=== PATIENT | female | born 1980 | race Two or more races ===

== ENCOUNTER 2018-07-17 19:29 | Inpatient (IN) | payer BC ==
[~2018-07-17] VITALS: Ht 165.1 cm; Wt 53.1 kg
[2018-07-17 19:59] LABS: BASOPHILS % (AUTO) 0.5 % (0.0-2.0); EOSINOPHILS # (AUTO) 0.1 K/uL (0.0-0.7); EOSINOPHILS % (AUTO) 0.8 % (0.0-7.0); HEMATOCRIT 39.5 % (31.2-41.9); HEMOGLOBIN 13.2 g/dL (10.9-14.3); LYMPHOCYTES # (AUTO) 3.6 K/uL (20.0-40.0); LYMPHOCYTES % (AUTO) 44.9 % (20.5-51.5); MEAN CORPUSCULAR HEMOGLOBIN 28.1 uug (24.7-32.8); MEAN CORPUSCULAR HGB CONC 33 g/dL (32.3-35.6); MEAN CORPUSCULAR VOLUME 84.4 fL (75.5-95.3); MONOCYTES # (AUTO) 1.1 K/uL (2.0-10.0); MONOCYTES % (AUTO) 13.8 % (0.0-11.0); NEUTROPHILS # (AUTO) 3.2 K/uL (1.8-8.9); PLATELET COUNT (AUTO) 217 K/uL (179-408); RED BLOOD CELL COUNT(AUTO) 4.68 MIL/uL (3.63-4.92)
[2018-07-17] MEDS ORDERED: PROPRANOLOL HCL 1 MG/1 ML VIAL IVP ONE (20:00)
[2018-07-17] MEDS ORDERED: METOPROLOL TARTRATE 5 MG/5 ML VIAL IVP ONE ×2 (20:00→20:04)
[2018-07-17] MEDS ORDERED: IV NORMAL SALINE 1000 ML BAG IV ONE (20:00)
[2018-07-17 20:11] LABS: CARBON DIOXIDE 22 mmol/L (21-32); CHLORIDE 104 mmol/L (98-107); CREATININE 0.5 mg/dL (0.6-1.3); GLUCOSE 101 mg/dL (74-106); POTASSIUM 3.1 mmol/L (3.5-5.1); UREA NITROGEN, BLOOD 6 mg/dL (7-18)
[2018-07-17 20:26] LABS: ALANINE AMINOTRANSFERASE 16 U/L (14-59); ALKALINE PHOSPHATASE 100 U/L (50-136); ASPARTATE AMINOTRANSFERASE 15 U/L (15-37); BILIRUBIN,DIRECT 0.1 mg/dL (0.0-0.2); BILIRUBIN,TOTAL 0.3 mg/dL (0.2-1.0); TOTAL PROTEIN, SERUM 7.8 g/dL (6.4-8.2)
[2018-07-17] MEDS ORDERED: POTASSIUM BICARBONATE/CIT AC 25 MEQ TABLET.EFF PO ONE (20:45)
[2018-07-17] MEDS ORDERED: LORAZEPAM 2 MG/1 ML VIAL IV ONE (20:45)
[2018-07-17] MEDS ORDERED: LORAZEPAM 2 MG/1 ML VIAL ONE (20:48)
[2018-07-17] MEDS ORDERED: POTASSIUM BICARBONATE/CIT AC 25 MEQ TABLET.EFF ONE (20:48)
[2018-07-17] MEDS ORDERED: ALPRAZOLAM 0.25 MG TABLET PO PRN (21:45)
[2018-07-17] MEDS ORDERED: ACETAMINOPHEN 325 MG TABLET PO PRN (21:45)
[2018-07-17] MEDS ORDERED: TEMAZEPAM 15 MG CAPSULE PO PRN (21:45)
[2018-07-17] MEDS ORDERED: POTASSIUM CHLORIDE 20 MEQ in IV 1/2NS 1000 ML 1,000 ML IV SCH (21:45)
[2018-07-17] MEDS ORDERED: METOPROLOL TARTRATE 50 MG TABLET PO ONE (22:30)
[2018-07-17 23:15] VITALS: BP 118/74
[2018-07-18] VITALS: BP 114/74
[2018-07-18 04:00] VITALS: BP 102/66
[2018-07-18 06:42] LABS: BASOPHILS % (AUTO) 0.3 % (0.0-2.0); EOSINOPHILS # (AUTO) 0.1 K/uL (0.0-0.7); EOSINOPHILS % (AUTO) 1.3 % (0.0-7.0); HEMATOCRIT 35.2 % (31.2-41.9); HEMOGLOBIN 11.8 g/dL (10.9-14.3); LYMPHOCYTES # (AUTO) 2.3 K/uL (20.0-40.0); LYMPHOCYTES % (AUTO) 46.1 % (20.5-51.5); MEAN CORPUSCULAR HEMOGLOBIN 28.4 uug (24.7-32.8); MEAN CORPUSCULAR HGB CONC 33 g/dL (32.3-35.6); MEAN CORPUSCULAR VOLUME 85.1 fL (75.5-95.3); MONOCYTES # (AUTO) 0.8 K/uL (2.0-10.0); MONOCYTES % (AUTO) 16.1 % (0.0-11.0); NEUTROPHILS # (AUTO) 1.8 K/uL (1.8-8.9); NEUTROPHILS % (AUTO) 36.2 % (38.5-71.5); PLATELET COUNT (AUTO) 172 K/uL (179-408); RED BLOOD CELL COUNT(AUTO) 4.14 MIL/uL (3.63-4.92); WHITE BLOOD COUNT (AUTO) 4.9 K/uL (3.8-11.8)
[2018-07-18 06:57] LABS: ALANINE AMINOTRANSFERASE 34 U/L (14-59); ALKALINE PHOSPHATASE 83 U/L (50-136); ASPARTATE AMINOTRANSFERASE 28 U/L (15-37); BILIRUBIN,TOTAL 0.3 mg/dL (0.2-1.0); CARBON DIOXIDE 22 mmol/L (21-32); CHLORIDE 107 mmol/L (98-107); CREATININE 0.4 mg/dL (0.6-1.3); GLUCOSE 86 mg/dL (74-106); PHOSPHOROUS 4.3 mg/dL (2.5-4.9); POTASSIUM 3.6 mmol/L (3.5-5.1); TOTAL PROTEIN, SERUM 6.4 g/dL (6.4-8.2); UREA NITROGEN, BLOOD 6 mg/dL (7-18)
[2018-07-18 07:02] LABS: THYROID STIMULATING HORMONE < 0.007 mIU/mL (0.358-3.740)
[2018-07-18 07:03] LABS: IRON, SERUM 53 ug/dL (50-175)
[2018-07-18 07:12] LABS: EOSINOPHILS % (MANUAL) 1 % (0-8); LYMPHOCYTES % (MANUAL) 47 % (20-40); MONOCYTES % (MANUAL) 15 % (2-10); NEUTROPHILS % (MANUAL) 37 % (42-75)
[2018-07-18 08:29] VITALS: BP 100/70
[2018-07-18] MEDS ORDERED: METOPROLOL TARTRATE 25 MG TABLET PO SCH (09:00)
[2018-07-18] MEDS ORDERED: METOPROLOL TARTRATE 50 MG TABLET PO SCH (09:00)
[2018-07-18 11:28] VITALS: BP 110/65
[2018-07-18] MEDS ORDERED: TEMA15CA5 PO (12:30)
[2018-07-18] MEDS ORDERED: PROP10TA10 PO (12:30)
[2018-07-18] MEDS ORDERED: ALPR0.25 PO (12:30)
== END 2018-07-18 15:42 | disposition home or self-care (01) | DRG 645 ==
LOC: ER 19:29 → TELE3 21:46 → MEDSURG3 07-18 14:43
PROVIDERS: ADMIT Internal Medicine; ATTEND Internal Medicine
DX: E05.90 Thyrotoxicosis, unspecified without thyrotoxic crisis or storm (principal); F41.9 Anxiety disorder, unspecified; R00.0 Tachycardia, unspecified; E87.6 Hypokalemia; Z83.49 Family history of other endocrine, nutritional and metabolic diseases; Z82.49 Family history of ischemic heart disease and other diseases of the circulatory system
CPT/HCPCS: 36415; 70030-TC; 71045; 83550; 83735; 84100; 84443; 85025; 85651; 85730; 93005; A4663; G0378; J1800; J2060; J3480; J3490

== ENCOUNTER 2021-11-27 22:30 | Emergency (ER) | payer BC ==
[~2021-11-27] VITALS: Ht 167.6 cm; Wt 54.4 kg
[~2021-11-27 22:30] MED LIST: ALPR0.25 PO; PROP10TA10 PO; TEMA15CA5 PO
--- NOTE | 2021-11-27 23:30 | NUR ---
Dr. Aguilar at bedside for MSE.
[2021-11-27] MEDS ORDERED: KETOROLAC TROMETHAMINE 30 MG INJ IVP ONE (23:45)
[2021-11-27] MEDS ORDERED: diphenhydrAMINE 50 MG/1 ML VIAL IV ONE (23:45)
[2021-11-27] MEDS ORDERED: METOCLOPRAMIDE HCL 10 MG/2 ML VIAL IV ONE (23:45)
[2021-11-27 23:54] LABS: HEMATOCRIT 37.9 % (31.2-41.9); MEAN CORPUSCULAR HEMOGLOBIN 31.1 uug (24.7-32.8); MEAN CORPUSCULAR VOLUME 92.3 fL (75.5-95.3); PLATELET COUNT (AUTO) 203 K/uL (179-408)
[2021-11-27 23:58] LABS: CREATININE 0.6 mg/dL (0.6-1.3); POTASSIUM 3.4 mmol/L (3.5-5.1)
[2021-11-28 00:03] LABS: BILIRUBIN,DIRECT 0.1 mg/dL (0.0-0.2); BILIRUBIN,TOTAL 0.4 mg/dL (0.2-1.0); TOTAL PROTEIN, SERUM 7.6 g/dL (6.4-8.2)
[2021-11-28] MEDS ORDERED: KETOROLAC TROMETHAMINE 30 MG INJ ONE (00:16)
[2021-11-28] MEDS ORDERED: METOCLOPRAMIDE HCL 10 MG/2 ML VIAL ONE (00:16)
[2021-11-28] MEDS ORDERED: diphenhydrAMINE 50 MG/1 ML VIAL ONE (00:16)
--- NOTE | 2021-11-28 02:11 | NUR ---
Patient does not wish to proceed with medical care recommended by Dr. Aguilar. Patient given information related to possible complications, up to and including , which could occur as a result of leaving the hospital at this time. Patient verbalizes understanding of risks involved due to leaving against medical advice. Patient has signed AMA form. Patient provided with copies of lab and CT results.
[2021-11-28 02:12] VITALS: BP 125/90
== END 2021-11-28 02:13 | disposition left against medical advice (07) ==
LOC: ER 22:30
DX: R51.9 Headache, unspecified (principal); E07.9 Disorder of thyroid, unspecified; Z53.29 Procedure and treatment not carried out because of patient's decision for other reasons
CPT/HCPCS: 70450; 80076; 80048; 84443; 85025; 36415 ×2; 99284; 96374; 96375; 84702; J1200; J1885; J2765; A4663